=== PATIENT | male | born 1995 | race African-American/Black ===

== ENCOUNTER 2025-04-19 09:59 | Emergency (ER) | payer SELFPAY ==
--- NOTE | 2025-04-19 10:24 | ED_ITS ---
HPI - Skin/Abscess/Foreign Bdy General Chief complaint: Skin/Abscess/Foreign Body Stated complaint: boil Time Seen by Provider: 04/19/25 10:24 Source: patient Mode of arrival: ambulatory Limitations: no limitations History of Present Illness HPI narrative: 29 yo M presents with abscess to L buttock for 3 to 4 days. afebrile. Reports abscess to same spot or close to it at least 3 other times. Pt drives forklift, does a lot of sitting at work. Has not seen a specialist for his abscesses. all systems reviewed and negative except as noted above. Related Data Allergies Allergy/AdvReac Type Severity Reaction Status Date / Time No Known Allergies Allergy Verified 04/19/25 10:20 PMFSH Comments At time of signature, agree with nursing past medical, surgical, social and family history. There is no relevant family history pertinent to the presenting complaint. Exam Narrative: GENERAL: This is a well-nourished, well-developed patient, in no apparent distress. HEAD: normocephalic, atraumatic. EYES: PERRL. Sclera clear/white. Vision is grossly intact. EARS: External ears normal NOSE: External nose normal NECK: Neck supple, non-tender without lymphadenopathy, masses or thyromegaly. CARDIOVASCULAR: Regular rate and rhythm without murmurs, gallops, or rubs. RESPIRATORY: Clear to auscultation. Breath sounds equal bilaterally. No wheezes, rales, or rhonchi. SKIN: warm, Dry, intact with no suspicious lesions or rash, good texture and turgor. Abscess to right buttock approximate 5-6 cm diameter with fluctuance And induration. erythematous. Scar tissue noted from previous I&D. NEURO: awake, alert, and oriented to person, place and time. There were no obvious focal neurologic abnormalities. EXTREMITIES: No joint tenderness, effusion, or edema noted. Course Course Level of Care: Express Care Visit Vital Signs Vital signs: Vital Signs Temperature 36.8 C 04/19/25 10:28 Pulse Rate 90 04/19/25 10:28 Respiratory Rate 18 04/19/25 10:28 Blood Pressure 123/71 04/19/25 10:28 Pulse Oximetry 100 04/19/25 10:28 Oxygen Delivery Room Air 04/19/25 10:28 Temperature 36.8 C 04/19/25 10:28 Pulse Rate 90 04/19/25 10:28 Respiratory Rate 18 04/19/25 10:28 Blood Pressure 123/71 04/19/25 10:28 Pulse Oximetry 100 04/19/25 10:28 Oxygen Delivery Room Air 04/19/25 10:28 Reviewed Procedures Abscess I/D other: Date of Incision: 04/19/25 Side (if applicable): right ( buttock) Local Anesthetic: lidocaine 2% Amount of anesthesia used (mL): 5 Technique: incised with #11 blade Irrigation: Yes Packing used?: plain I&D Results: Blood MDM - Skin/Abscess/Foreign Bdy MDM Narrative Medical decision making narrative: blood noted from abscess after I and D, very little pus. referred to general surgery for follow up. patient well-appearing, nontoxic. Differential Diagnosis Differential diagnosis: Likely abscess of skin or subcutaneous tissue Discharge Plan Discharge Clinical Impression: Abscess of buttock, left Patient Disposition: Home Condition: Stable Instructions: Antibiotic Form, Abscess (ED), Abscess Incision and Drainage (DC) Additional Instructions: take antibiotic as prescribed until gone. Take Tylenol or ibuprofen every 6-8 hours as needed for pain. Apply warm compresses for 10-15 minutes 4 times a day Or sit in Sitz bath. Follow with up with specialist at next available appointment. Patient Language: Portuguese Prescriptions: New clindamycin HCl [Cleocin HCl] 300 mg capsule 300 mg PO Q6H 10 Days Qty: 40 0RF Follow-up/Referrals: UNKNOWN,DOCTOR [Primary Care Provider] Tomas Swain MD [Physician, General Surgery] Stand Alone Forms: Work/School Release IP Time of Disposition: 10:55
[2025-04-19 10:28] VITALS: BP 123/71; PULSE 90; RESP 18; TEMP 36.8; O2SAT 100
== END 2025-04-19 11:02 | disposition home or self-care (01) ==
PROVIDERS: Emergency Provider Nurse Practitioner Family
DX: L02.31 Cutaneous abscess of buttock (principal)
CPT/HCPCS: 10061; 87070; 87075; 99213; G0463; J2003